=== PATIENT | female | born 1960 | race Caucasian/White ===

== ENCOUNTER 2024-07-18 18:52 | Emergency (ER) | payer OTHER ==
[~2024-07-18] VITALS: Ht 167.6 cm; Wt 62.1 kg
[2024-07-18 19:14] VITALS: BP 137/78; PULSE 66; RESP 18; TEMP 98.8; O2SAT 94
[2024-07-18] MEDS ORDERED: PREDNISONE ONE (19:37)
[2024-07-18] MEDS ORDERED: KETO10TA PO (19:37)
[2024-07-18] MEDS ORDERED: METH-622 PO (19:37)
[2024-07-18] MEDS ORDERED: TORADOL ONE (19:37)
[2024-07-18] MEDS: TORADOL IM STA (19:44)
[2024-07-18] MEDS: PREDNISONE PO STA (19:44)
[2024-07-18 19:47] VITALS: BP 143/89; PULSE 79; RESP 18; TEMP 98.8; O2SAT 93
== END 2024-07-18 19:50 | disposition home or self-care (01) ==
LOC: ER 18:52
DX: M54.31 Sciatica, right side (principal); G89.29 Other chronic pain
CPT/HCPCS: 99283; 96372; J1885; J7512